=== PATIENT | female | born 1980 | race Two or more races ===

== ENCOUNTER 2023-02-27 08:09 | Outpatient (AMB) | payer OTHER, SELFPAY ==
--- NOTE | 2023-02-27 08:32 | AM.OFFWIN_ITS ---
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 Patient reports that she may have intermenstrual bleeding. There is pinkish blood when she wipes for the past 2 days. She feels she may be having a. Coming as there is heaviness in the pelvic area. Her last period was at the end of January. She reports that she cannot be . [facility] Social History Patient Tobacco Use Status: Never used Tobacco Physical Exam Vital Signs: Last Vital Signs Temp 97.8 F 02/27/23 08:34 Pulse 83 02/27/23 08:34 BP 130/76 02/27/23 08:34 Pulse Ox 98 02/27/23 08:34 BMI result Body Mass Index 25.0 GI Other: Abdomen: Bowel sounds present. No organomegaly. General: Yes bladder normal to palpation and Yes no CVA tenderness Bimanual exam- vagina & uterus: bladder normal to palpation Back/Spine/Pelvis Back: no CVA tenderness Results AMB Urinalysis, Automated UA Leukoctes 0 Bessie/uL Last Edit by Sharon Kumari CMA on 02/27/23 08:50 UA Nitrite Negative Last Edit by Sharon Kumari CMA on 02/27/23 08:50 UA Urobilinogen 0.2 mg/dL Last Edit by Sharon Kumari CMA on 02/27/23 08:50 UA Protein 0 mg/dL Last Edit by Sharon Kumari CMA on 02/27/23 08:50 UA pH 7.5 Last Edit by Sharon Kumari CMA on 02/27/23 08:50 UA Blood 0 Dima/uL Last Edit by Sharon Kumari CMA on 02/27/23 08:50 UA Specific [place] 1.010 Last Edit by Sharon Kumari CMA on 02/27/23 08:50 UA Ketone Negative Last Edit by Sharon Kumari CMA on 02/27/23 08:50 UA Bilirubin 0 mg/dL Last Edit by Sharon Kumari CMA on 02/27/23 08:50 UA Glucose 0 mg/dL Last Edit by Sharon Kumari CMA on 02/27/23 08:50 Results Reviewed Results Reviewed: Laboratory Last Values Urine pH (Auto) 7.5 02/27/23 08:48 Specific [place] (Auto) 1.010 02/27/23 08:48 Urine Protein (Auto) 0 mg/dL 02/27/23 08:48 Glucose (UA)(Auto) 0 mg/dL 02/27/23 08:48 Urine Ketones (Auto) Negative 02/27/23 08:48 Urine Blood (Auto) 0 Dima/uL 02/27/23 08:48 Urine Nitrite (Auto) Negative 02/27/23 08:48 Urine Bilirubin (Auto) 0 mg/dL 02/27/23 08:48 Urine Urobilinogen (Auto) 0.2 mg/dL 02/27/23 08:48 Leukocyte Esterase (Auto) 0 Bessie/uL 02/27/23 08:48 Assessment & Plan Assessment & Plan (1) Dysmenorrhea: Code(s): N94.6 - Dysmenorrhea, unspecified Plan: Symptoms are very vague. Urinalysis done was unremarkable. No treatment started. Patient was advised that should she need gynecological care, she should contact her PCP for a referral. Orders: Orders AMB Urinalysis Automated Today Z13.9 - Encounter for screening, unspecified Coding Level of Care Code New Pt Level 3 (63612) Diagnoses Dysmenorrhea N94.6
[2023-02-27 08:34] VITALS: BP 130/76; PULSE 83; TEMP 36.6; O2SAT 98; BMI 25.0
== END 2023-02-27 09:14 | disposition home or self-care (01) ==
PROVIDERS: Visit Provider Internal Medicine
DX: N94.6 Dysmenorrhea, unspecified (principal)
CPT/HCPCS: 81003; 99203